=== PATIENT | female | born 1990 | race Caucasian/White ===

== ENCOUNTER 2020-01-02 00:39 | Observation (INO) | payer OTHER ==
[~2020-01-02] VITALS: Ht 152.4 cm; Wt 66.7 kg
[2020-01-02] MEDS ORDERED: TERBUTALINE SULFATE 1 MG/ML VIAL SUBCUT PRN (01:45)
[2020-01-02] MEDS ORDERED: NIFEdipine (O.B. USE ONLY) 10 MG CAPSULE PO PRN (01:45)
[2020-01-02] MEDS: LR 1,000 ML IV SCH ×2 (02:32→03:19)
[2020-01-02 03:52] LABS: BILIRUBIN,URINE NEGATIVE (NEGATIVE); BLOOD, URINE NEGATIVE (NEGATIVE); CLARITY/URINE CLEAR (CLEAR); COLOR,URINE YELLOW (YELLOW); GLUCOSE,URINE NEGATIVE (NEGATIVE); KETONES,URINE TRACE (NEGATIVE); LEUKOCYTE ESTERASE ,URINE TRACE (NEGATIVE); NITRITE, URINE NEGATIVE (NEGATIVE); PH,URINE 6.5 (5.0-8.0); PROTEIN URINE NEGATIVE (NEGATIVE); UROBILINOGEN,URINE 0.2 (0.2-1.0)
[2020-01-02 04:37] LABS: BACTERIA,URINE FEW /HPF (None Seen); RBC,URINE 0-3 /HPF (0-3)
[2020-01-02] MEDS: NIFEdipine (O.B. USE ONLY) 10 MG CAPSULE PO SCH ×5 (13:30→22:30)
[2020-01-02] MEDS: BETAMET ACET/BETAMET NA PH 30 MG/5 ML VIAL IM SCH (14:29)
[2020-01-03] MEDS: NIFEdipine (O.B. USE ONLY) 10 MG CAPSULE PO SCH ×2 (02:40→06:53)
[2020-01-03] MEDS ORDERED: NIFEdipine (O.B. USE ONLY) 10 MG CAPSULE PO SCH (14:00)
[2020-01-03] MEDS: BETAMET ACET/BETAMET NA PH 30 MG/5 ML VIAL IM SCH (14:12)
[2020-01-03] MEDS ORDERED: TERBUTALINE SULFATE 1 MG/ML VIAL SUBCUT ONE (16:14)
== END 2020-01-03 16:15 | disposition home or self-care (01) ==
LOC: SPU 00:39
PROVIDERS: ADMIT Specialist; ATTEND Specialist
DX: O36.8130 Decreased fetal movements, third trimester, not applicable or unspecified (principal); O60.03 Preterm labor without delivery, third trimester; Z3A.34 34 weeks gestation of pregnancy; Z79.899 Other long term (current) drug therapy
CPT/HCPCS: 81000; 87086; 96360; 96361; 96372 ×2; G0378; J0702; J3105; J7120; 59899; 81002-TC

== ENCOUNTER 2020-01-18 15:21 | Observation (INO) | payer OTHER ==
[~2020-01-18] VITALS: Ht 152.4 cm; Wt 68.0 kg
== END 2020-01-18 20:25 | disposition home or self-care (01) ==
LOC: SPU 17:22
PROVIDERS: ADMIT Specialist; ATTEND Specialist
DX: Z34.83 Encounter for supervision of other normal pregnancy, third trimester (principal); Z3A.37 37 weeks gestation of pregnancy
CPT/HCPCS: 36415; 76819; 82239; G0378

== ENCOUNTER 2020-01-22 19:59 | Inpatient (IN) | payer OTHER, SELFPAY ==
[~2020-01-22] VITALS: Ht 152.4 cm; Wt 69.9 kg
[2020-01-22] MEDS: LR 1,000 ML IV SCH (17:30)
[2020-01-22] MEDS ORDERED: fentaNYL CITRATE/PF 100 MCG/2 ML AMP IVP ONE (20:00)
[2020-01-22] MEDS ORDERED: METHYLERGONOVINE MALEATE 0.2 MG/ML AMP IM ONE (20:00)
[2020-01-22] MEDS ORDERED: ONDANSETRON HCL 4 MG/2 ML VIAL IVP ONE (20:00)
[2020-01-22] MEDS ORDERED: LIDOCAINE 1% 10 MG/ML, 20 ML MDV INJ ONE (20:00)
[2020-01-22] MEDS ORDERED: MORPHINE SULFATE 10MG/10ML PF AMP EP ONE (20:00)
[2020-01-22] MEDS ORDERED: LR 1,000 ML IV.SOLN IV ONE (20:00)
[2020-01-22] MEDS ORDERED: OXYTOCIN 10 UNIT/ML VIAL IM ONE (20:00)
[2020-01-22] MEDS ORDERED: DEXAMETHASONE SOD PHOSPHATE 4 MG/ML VIAL IVP ONE (20:00)
[2020-01-22] MEDS ORDERED: NS IRRIG SOLN 1000 ML IR ONE (20:00)
[2020-01-22] MEDS ORDERED: LR 1,000 ML IV ONE (20:15)
[2020-01-22] MEDS ORDERED: TERBUTALINE SULFATE 1 MG/ML VIAL SUBCUT ONE (20:15)
[2020-01-22] MEDS ORDERED: DINOPROSTONE 10 MG SUPP VG ONE (20:15)
[2020-01-22 20:57] LABS: BASOPHILS # (AUTO) 0.1 K/uL (0.0-0.2); BASOPHILS % (AUTO) 0.6 % (0.0-2.0); EOSINOPHILS # (AUTO) 0.1 K/uL (0.0-0.4); HEMATOCRIT 35.2 % (36-48); HEMOGLOBIN 11.6 g/dL (12.0-16.0); LYMPHOCYTES # (AUTO) 1.9 K/uL (1.0-5.5); LYMPHOCYTES % (AUTO) 21.3 % (20.5-51.5); MEAN CORPUSCULAR HEMOGLOBIN 28 pg (27-31); MEAN CORPUSCULAR HGB CONC 33 % (32-36); MEAN CORPUSCULAR VOLUME 85 fL (79.0-98.0); MONOCYTES # (AUTO) 0.6 K/uL (0.0-1.0); MONOCYTES % (AUTO) 6.5 % (1.7-9.3); NEUTROPHILS # (AUTO) 6.4 K/uL (1.8-7.7); NEUTROPHILS % (AUTO) 70.6 % (40.0-70.0); PLATELET COUNT (AUTO) 198 K/uL (130-430); RED BLOOD CELL COUNT(AUTO) 4.16 MIL/uL (4.2-6.2); RED CELL DISTRIBUTION WIDTH 13.7 % (9.0-15.0)
[2020-01-22 21:36] VITALS: BP_SYST 127
[2020-01-22] MEDS ORDERED: FLU VACC QS2020-21 (6 mos & up) 0.5 ML/SYRINGE I.M. PRN (21:45)
[2020-01-23] MEDS: LR 1,000 ML IV SCH (00:14)
[2020-01-23] MEDS ORDERED: MORPHINE SULFATE 10 MG/ML VIAL IVP PRN (05:00)
[2020-01-23] MEDS ORDERED: NALOXONE HCL 0.4 MG/ML AMP (NARCAN) IVP PRN ×2 (05:00→18:00)
[2020-01-23] MEDS ORDERED: DINOPROSTONE 10 MG SUPP VG ONE (08:47)
[2020-01-23] MEDS ORDERED: LIDOCAINE JELLY 5 ML TUBE MM ONE (09:15)
[2020-01-23] MEDS ORDERED: OXYTOCIN/0.9 % SODIUM CHLORIDE 1,000 ML IV SCH (11:00)
[2020-01-23] MEDS ORDERED: OXYTOCIN/0.9 % SODIUM CHLORIDE 1,000 ML IV ONE (11:26)
[2020-01-23] MEDS ORDERED: ROPIVACAINE HCL/PF 0.2% 200 ML ONE (17:37)
[2020-01-23] MEDS ORDERED: fentaNYL CITRATE/PF 100 MCG/2 ML AMP ONE (17:37)
[2020-01-23] MEDS ORDERED: DIPHENHYDRAMINE INJ 50 MG/ML VIAL IVP PRN (18:00)
[2020-01-23] MEDS ORDERED: ONDANSETRON HCL 4 MG/2 ML VIAL IVP PRN (18:00)
[2020-01-23] MEDS ORDERED: FENT2mCg/mL-ROPIVA0.2%/NS EPID 200 ML EP SCH (18:00)
[2020-01-24] MEDS: LR 1,000 ML IV SCH (08:15)
[2020-01-24] MEDS ORDERED: fentaNYL CITRATE/PF 100 MCG/2 ML AMP ONE (09:25)
[2020-01-24] MEDS ORDERED: ROPIVACAINE HCL/PF 0.2% 200 ML ONE (09:25)
[2020-01-24] MEDS ORDERED: ceFAZolin SODIUM 2 GM in D5W 100 ML IV ONE (20:00)
[2020-01-24] MEDS ORDERED: METHYLERGONOVINE MALEATE 0.2 MG/ML AMP ONE (20:55)
[2020-01-24] MEDS ORDERED: MEPERIDINE HCL/PF 25 MG/ML DISP.SYRIN IVP PRN (21:00)
[2020-01-24] MEDS ORDERED: TEMAZEPAM 15 MG CAPSULE PO PRN (21:00)
[2020-01-24] MEDS ORDERED: SENNOSIDES/DOCUSATE SODIUM 1 TAB TABLET(SENOKOT-S) PO PRN (21:00)
[2020-01-24] MEDS ORDERED: MEASLES,MUMPS&RUBELLA VACC/PF 12500 UNIT/0.5 ML VIAL SUBQ PRN (21:00)
[2020-01-24] MEDS ORDERED: NALOXONE HCL 0.4 MG/ML AMP (NARCAN) IVP PRN ×3 (21:00)
[2020-01-24] MEDS ORDERED: KETOROLAC TROMETHAMINE 60 MG/2 ML VIAL IM PRN (21:00)
[2020-01-24] MEDS ORDERED: OXYCODONE/ACETAMINOPHEN 5-325 TABLET PO PRN (21:00)
[2020-01-24] MEDS ORDERED: ONDANSETRON HCL 4 MG/2 ML VIAL IVP PRN (21:00)
[2020-01-24] MEDS ORDERED: DIPH-TET-PERTUS Vaccine 0.5 ML VIAL (ADACEL) I.M. PRN (21:00)
[2020-01-24] MEDS ORDERED: LR 1,000 ML IV SCH (21:00)
[2020-01-24] MEDS ORDERED: BISACODYL 10 MG/SUPPOSITORY RC PRN (21:00)
[2020-01-24] MEDS ORDERED: OXYTOCIN/0.9 % SODIUM CHLORIDE 1,000 ML IV SCH (21:00)
[2020-01-24] MEDS ORDERED: DIPHENHYDRAMINE INJ 50 MG/ML VIAL IVP PRN (21:00)
[2020-01-24] MEDS ORDERED: ANUSOL 1 EA SUPP.RECT (PREPARATION H) RC PRN (21:00)
[2020-01-24] MEDS ORDERED: RHO(D) IMMUNE GLOBULIN/MALTOSE 1500 UNITS/1.3 ML (WINHRO) IM PRN (21:00)
[2020-01-24] MEDS ORDERED: LANOLIN 7 GM OINT. TP PRN (21:00)
[2020-01-24 21:07] VITALS: BP_SYST 126
[2020-01-24] MEDS: CEFAZOLIN 1 GM IVPB PREMIX 50 ML IV SCH (23:00)
[2020-01-25] MEDS ORDERED: ceFAZolin SODIUM 2 GM in D5W 100 ML IV SCH (06:00)
[2020-01-25] MEDS: KETOROLAC TROMETHAMINE 30 MG VIAL IVP SCH ×3 (06:14→17:55)
[2020-01-25] MEDS: CEFAZOLIN 1 GM IVPB PREMIX 50 ML IV SCH ×2 (06:14→13:06)
[2020-01-25 07:31] LABS: BASOPHILS % (AUTO) 0.2 % (0.0-2.0); EOSINOPHILS % (AUTO) 0.1 % (0.0-4.0); HEMATOCRIT 34.4 % (36-48); HEMOGLOBIN 11.3 g/dL (12.0-16.0); LYMPHOCYTES # (AUTO) 1.7 K/uL (1.0-5.5); LYMPHOCYTES % (AUTO) 10.9 % (20.5-51.5); MEAN CORPUSCULAR HEMOGLOBIN 28 pg (27-31); MEAN CORPUSCULAR HGB CONC 33 % (32-36); MEAN CORPUSCULAR VOLUME 85 fL (79.0-98.0); MONOCYTES % (AUTO) 6.2 % (1.7-9.3); NEUTROPHILS # (AUTO) 12.8 K/uL (1.8-7.7); NEUTROPHILS % (AUTO) 82.6 % (40.0-70.0); PLATELET COUNT (AUTO) 185 K/uL (130-430); RED BLOOD CELL COUNT(AUTO) 4.06 MIL/uL (4.2-6.2); RED CELL DISTRIBUTION WIDTH 13.8 % (9.0-15.0); WHITE BLOOD COUNT (AUTO) 15.5 K/uL (4.8-10.8)
[2020-01-25] MEDS ORDERED: KETOROLAC TROMETHAMINE 60 MG/2 ML VIAL IM ONE ×2 (09:37→10:03)
[2020-01-25] MEDS: SIMETHICONE 80 MG TAB.CHEW PO PRN ×2 (12:14→20:47)
[2020-01-25] MEDS ORDERED: BUPIVACAINE /PF 0.5% 30 ML VIAL INJ ONE (13:00)
[2020-01-25] MEDS ORDERED: BUPIVACAINE /PF 0.25% 30 ML VIAL INJ ONE (13:00)
[2020-01-25] MEDS: HYDROcodone/ACETAMIN 5-325 MG TAB (NORCO/ VICODIN) PO PRN (21:26)
[2020-01-26] MEDS: KETOROLAC TROMETHAMINE 30 MG VIAL IVP SCH (00:17)
[2020-01-26] MEDS: HYDROcodone/ACETAMIN 5-325 MG TAB (NORCO/ VICODIN) PO PRN ×2 (06:02→11:38)
[2020-01-26] MEDS: IBUPROFEN 600 MG TABLET PO SCH ×3 (06:02→18:17)
[2020-01-26] MEDS: SIMETHICONE 80 MG TAB.CHEW PO PRN ×3 (12:30→21:14)
[2020-01-26] MEDS: DOCUSATE SODIUM 100 MG CAPSULE PO PRN ×2 (18:17→21:13)
[2020-01-26] MEDS: OXYCODONE/ACETAMINOPHEN *10*mg/325 mg TABLET PO PRN (21:15)
[2020-01-27] MEDS: IBUPROFEN 600 MG TABLET PO SCH ×4 (00:11→17:53)
[2020-01-27] MEDS: OXYCODONE/ACETAMINOPHEN *10*mg/325 mg TABLET PO PRN ×4 (04:12→15:09)
[2020-01-27] MEDS: DOCUSATE SODIUM 100 MG CAPSULE PO PRN (11:21)
[2020-01-27] MEDS: SIMETHICONE 80 MG TAB.CHEW PO PRN ×2 (11:21→15:08)
== END 2020-01-27 18:20 | disposition home or self-care (01) | DRG 786 ==
LOC: SPU 19:59
PROVIDERS: ADMIT Specialist; ATTEND Specialist
PROC: 3E033VJ Introduction of Other Hormone into Peripheral Vein, Percutaneous Approach (ICD-10-PCS; 2020-01-24)
PROC: 3E0P7VZ Introduction of Hormone into Female Reproductive, Via Natural or Artificial Opening (ICD-10-PCS; 2020-01-24)
PROC: 10D00Z1 Extraction of Products of Conception, Low, Open Approach (ICD-10-PCS; principal; 2020-01-24 19:30)
DX: O26.62 Liver and biliary tract disorders in childbirth (principal); K83.1 Obstruction of bile duct; O62.2 Other uterine inertia; O69.1XX0 Labor and delivery complicated by cord around neck, with compression, not applicable or unspecified; Z20.828 Contact with and (suspected) exposure to other viral communicable diseases; Z3A.37 37 weeks gestation of pregnancy; Z37.0 Single live birth
CPT/HCPCS: 36415; 85025; 86886; 86900; 86901; J0690; J1100; J1885; J2001; J2210; J2274; J2405; J2590; J3010; J3490; J7060; J7120